=== PATIENT | female | born 1950 | race Caucasian/White ===

== ENCOUNTER → 2023-08-12 15:28 | Outpatient (CLI) | payer MEDICARE, BC, SELFPAY ==
--- NOTE | 2023-08-12 15:32 | DI.RAD.S_ITS ---
PROCEDURE: XR ANKLE LT MIN 3V INDICATIONS: Left ankle pain TECHNIQUE: 3 views of the ankle were acquired. COMPARISON: None. FINDINGS: Bones: No fractures or dislocations. Ankle mortise is normally aligned. No suspicious bony lesions. Soft tissues: No tibiotalar joint effusion. Achilles tendon appears normal. Lateral soft tissue swelling present. Small fight enthesophyte noted dorsally. IMPRESSION: Soft tissue swelling without fracture or foreign body Approved by: Piotr Blanchard M.D. on 08/12/2023 at 16:43
--- NOTE | 2023-08-12 15:32 | DI.RAD.S_ITS ---
PROCEDURE: XR FOOT LT MIN 3V INDICATIONS: Left ankle pain TECHNIQUE: 3 views of the foot were acquired. COMPARISON: None. FINDINGS: Bones: Oblique fracture through the 5th proximal phalangeal head. Suggestion of remodeling and periosteal reaction. Remainder of the osseous structures unremarkable Soft tissues: No tibiotalar joint effusion. Achilles tendon appears normal. IMPRESSION: Fifth proximal phalangeal head fracture, uncertain age Approved by: Piotr Blanchard M.D. on 08/12/2023 at 16:45
== END ==
LOC: RAD 15:31
PROVIDERS: Referring Provider Registered Nurse; Visit Provider Registered Nurse
DX: S92.512A Displaced fracture of proximal phalanx of left lesser toe(s), initial encounter for closed fracture (principal); M25.572 Pain in left ankle and joints of left foot; M79.89 Other specified soft tissue disorders
CPT/HCPCS: 73610; 73630